=== PATIENT | male | born 1945 | race Caucasian/White ===

== ENCOUNTER → 2016-04-06 | Outpatient (CLI) | payer BC ==
--- NOTE | ~2016-04-06 | CR63 ---
[facility] A Service of [facility] & [facility] RADIOLOGY TEXT RESULTS PATIENT: SARAH LAZO LOCATION: [facility] : 41 UNIT #: [id number] AGE: [address]: Amparo Farmer MD SEX: M ORDER DR: [id number] [facility] [address] [place], [place] [address] [id number] O MR#: [id number] Acc #: [id number] NAME: SARAH LAZO : 1945 SEX: M STUDY DATE/TIME: 04/06/2016 15:23 UNIT: [facility] ROOM: STUDY DESCRIPTION: CR Chest 2 View Attending Physician: Amparo Farmer M.D. Referring Physician: Amparo Farmer M.D. Ordering Physician: Amparo Farmer M.D. MEDICAL IMAGING REPORT This report is preliminary unless electronic signature is present EXAM PA and lateral chest radiograph 04/06/2016 COMPARISON STUDIES None. HISTORY Giant cell arteritis, shortness of breath for 5 months. FINDINGS PA and lateral views of the chest are obtained. The cardiovascular configuration of the chest is normal and the lungs are clear. There are atherosclerotic calcifications in the aorta. CONCLUSION 1. No active disease. Dictated by... Ramon Dey M.D. THIS IS AN ELECTRONICALLY VERIFIED REPORT Ramon Dey M.D. at 04/08/2016 5:04 PM [email or web address]/[email or web address] TD: 04/06/2016 21:37 JOB #: [id number] MEDICAL IMAGING REPORT COPY
== END | disposition home or self-care (01) ==
LOC: CRAD 14:26
DX: M31.6 Other giant cell arteritis (principal)
CPT/HCPCS: 71020